=== PATIENT | female | born 1980 | race Caucasian/White ===

== ENCOUNTER 2020-08-23 14:12 | Emergency (ER) | payer OTHER ==
[~2020-08-23] VITALS: Ht 165.1 cm; Wt 81.2 kg
[~2020-08-23 14:12] MED LIST: PREN-385 PO
[2020-08-23 14:32] VITALS: BP 149/93
--- NOTE | 2020-08-23 16:20 | NUR ---
URIBE, N/V/D X 2 DAYS
--- NOTE | 2020-08-23 16:24 | NUR ---
COVID SWAB COLLECTED AND WALKED TO LAB
--- NOTE | 2020-08-23 16:25 | NUR ---
Patient discharged with v/s stable. Written and verbal after care instructions given and explained. Patient alert, oriented and verbalized understanding of instructions. Ambulatory with steady gait. All questions addressed prior to discharge. ID band removed. Patient advised to follow up with PMD. Rx of TYLENOL AND ZOFRAN given. Patient educated on indication of medication including possible reaction and side effects. Opportunity to ask questions provided and answered.
== END 2020-08-23 16:25 | disposition home or self-care (01) ==
LOC: MED 14:12
DX: U07.1 COVID-19 (principal); R51.9 Headache, unspecified; Z79.899 Other long term (current) drug therapy
CPT/HCPCS: 99283; U0003

== ENCOUNTER 2024-04-21 16:48 | Emergency (ER) | payer OTHER ==
[~2024-04-21] VITALS: Ht 167.6 cm; Wt 83.9 kg
[2024-04-21 17:12] VITALS: BP 134/81; PULSE 67; RESP 16; TEMP 98.2; O2SAT 99
[2024-04-21] MEDS ORDERED: BACI-418 TP (18:49)
[2024-04-21] MEDS ORDERED: IBUP-2213 PO (18:49)
[2024-04-21] MEDS: LIDOCAINE MPF 1% 10 MG/ML VIAL INJ ONE (19:30)
[2024-04-21] MEDS ORDERED: ACETAMINOPHEN EXTRA STRENGTH 500 MG TAB ONE (19:50)
[2024-04-21] MEDS: ACETAMINOPHEN EXTRA STRENGTH 500 MG TAB PO ONE (19:50)
== END 2024-04-21 19:57 | disposition home or self-care (01) ==
LOC: MED 16:48
DX: S61.412A Laceration without foreign body of left hand, initial encounter (principal); R03.0 Elevated blood-pressure reading, without diagnosis of hypertension; Z79.899 Other long term (current) drug therapy; W26.0XXA Contact with knife, initial encounter; Y93.89 Activity, other specified; Y92.89 Other specified places as the place of occurrence of the external cause; Y99.8 Other external cause status
CPT/HCPCS: 12001; 90471; 90715; 99283